=== PATIENT | male | born 1965 | race Caucasian/White ===

== ENCOUNTER 2024-10-16 09:07 | Emergency (ER) | payer BC ==
[2024-10-16 09:13] VITALS: BP 142/84; PULSE 74; RESP 18; TEMP 98
--- NOTE | 2024-10-16 10:03 | ED ---
Eye Problem HPI - General Chief complaint: Eye Problems Stated complaint: L eye issue Time Seen by Provider: 10/16/24 09:15 Source: patient, family, RN notes reviewed Mode of arrival: ambulatory Limitations: no limitations - History of Present Illness Initial comments: This is a 59-year-old male who presents to the emergency department for visual changes in the left eye. States that last night before bed he noticed sudden onset of bright flashing light in the peripheral view of his left eye. It lasted for a couple of seconds and then resolved. States that symptoms have not returned. He has a history of floaters in his vision, but states that they are not usually bright like that, which is what concerned him. Denies any pain to the eye, headaches, nausea, or vomiting. - Related Data Allergies Allergy/AdvReac Type Severity Reaction Status Date / Time No Known Allergies Allergy Verified 10/16/24 09:13 Review of Systems ROS Statement: Those systems with pertinent positive or pertinent negative responses have been documented in the HPI. ROS Other: All systems not noted in ROS Statement are negative. Past Medical History Past Medical History: No Reported History History of Any Multi-Drug Resistant Organisms: None Reported Past Surgical History: Cholecystectomy Past Psychological History: Anxiety Smoking Status: Never smoker Past Alcohol Use History: None Reported Past Drug Use History: None Reported General Exam Limitations: no limitations General appearance: alert, in no apparent distress Head exam: Present: atraumatic, normocephalic, normal inspection Eye exam: Present: normal appearance, PERRL, EOMI. Absent: scleral icterus, conjunctival injection, periorbital swelling Respiratory exam: Present: normal lung sounds bilaterally. Absent: respiratory distress, wheezes, rales, rhonchi, stridor Cardiovascular Exam: Present: regular rate, normal rhythm Neurological exam: Present: alert, oriented X3, CN II-XII intact Psychiatric exam: Present: normal affect, normal mood Skin exam: Present: warm, dry, intact, normal color. Absent: rash Course Vital Signs 10/16/24 09:09 Temperature 98 F Pulse Rate 74 Respiratory 18 Rate Blood Pressure 142/84 O2 Sat by Pulse 97 Oximetry Medical Decision Making - Medical Decision Making This is a 59-year-old male who presents to the emergency department for visual changes. Was pt. sent in by a medical professional or institution? @ -No Did you speak to anyone other than the patient for history? @ -No Did you review nursing and triage notes? @ -Yes, and I agree, it is accurate with regards to the patient's symptoms. Were old charts reviewed? @ -No Differential Diagnosis? @ -Retinal detachment, vitreous detachment, uveitis, migraine, this is not meant to be all-inclusive list. EKG interpreted by me (3pts min.)? @ -Not obtained X-rays interpreted by me (1pt min.)? @ -Not obtained CT interpreted by me (1pt min.)? @ -Not obtained U/S interpreted by me (1pt. min.)? @ -Not obtained What testing was considered but not performed? (CT, X-rays, U/S, labs)? Why? @ -None What meds were considered but not given? Why? @ -None Did you discuss the management of the patient with other professionals? @ -Dr. Simmons, ophthalmology, at [facility] who advised ED to ED transfer. Dr. Duran accepts the patient for ED to ED transfer. Did you reconcile home meds? @ -No Was smoking cessation discussed for >3mins.? @ -No Was critical care preformed (if so, how long)? @ -No Were there social determinants of health that impacted care today? How? (Homelessness, low income, unemployed, alcoholism, drug addiction, transportation, low edu. Level, literacy, decrease access to med. care, fdc, rehab)? @ -No Was there de-escalation of care discussed even if they declined? (Discuss DNR or withdrawal of care, Hospice)? @ -No What co-morbidities impacted this encounter? (DM, HTN, Smoking, COPD, CAD, Cancer, CVA, Hep., AIDS, mental health diagnosis, sleep apnea, morbid obesity)? @ -None Was patient admitted / discharged? @ -On exam, extraocular movements were intact and PERRLA. Peripheral field vision was equal and intact bilaterally. Funduscopic exam had no gross abnormalities. Visual acuity is 20/50 on the left and 20/40 on the right. Ocular ultrasound performed and there was identification of possible membrane within the vitreous chamber concerning for possible vitreous detachment. We could not definitively tell if this was tethered to the optic disc to suggest retinal detachment. Ophthalmology is not available at our facility. Case was discussed with Dr. Simmons, ophthalmology at [facility]. She advised transfer to their facility for further evaluation in the event it is a retinal detachment. Patient is in agreement with this plan. Patient requested transfer by private vehicle. He was advised to remain n.p.o. in the event any intervention is needed. Patient transferred to [facility] via private vehicle. Dr. Duran is the accepting ED provider. [facility]. Undiagnosed new problem with uncertain prognosis? @ -None Drug Therapy requiring intensive monitoring for toxicity (Heparin, Nitro, Insulin, Cardizem)? @ -None Were any procedures done? @ -None Diagnosis/symptom? @ -Left vitreous floaters, possible vitreous detachment Acute, or Chronic, or Acute on Chronic? @ -Acute Uncomplicated (without systemic symptoms) or Complicated (systemic symptoms)? @ -Uncomplicated Side effects of treatment? @ -None Exacerbation, Progression, or Severe Exacerbation] @ -Not applicable Poses a threat to life or bodily function? @ -Yes, can lead to vision loss Disposition Clinical Impression: Vitreous floaters of left eye, Vitreous detachment of left eye Disposition: OTHER INSTITUTION NOT DEFINED Referrals: None,Stated [REFERRING] - 1-2 days - Out of Hospital Transfer - Req. Specs Out of Hospital Transfer - Requested Specifics: Other Emergency Center ([facility])
== END 2024-10-16 10:41 | disposition other institution (70) ==
LOC: EC 09:07
DX: H43.392 Other vitreous opacities, left eye (principal); H43.812 Vitreous degeneration, left eye
CPT/HCPCS: 99284